=== PATIENT | female | born 1965 | race Caucasian/White ===

== ENCOUNTER → 2023-05-17 15:26 | Outpatient (REF) | payer BC, SELFPAY | LOC: MRI 3T 15:26 | PROVIDERS: ATTENDING PHYSICIAN Internal Medicine Rheumatology; FAMILY PHYSICIAN Family Medicine | DX: R93.2 Abnormal findings on diagnostic imaging of liver and biliary tract (principal) | CPT/HCPCS: 72197; 74183; A9575 ==

== ENCOUNTER → 2023-07-09 10:43 | Outpatient (REF) | payer BC, SELFPAY | LOC: WDC 10:43 | PROVIDERS: ATTENDING PHYSICIAN Obstetrics & Gynecology; FAMILY PHYSICIAN Family Medicine | DX: R92.2 Inconclusive mammogram (principal); Z12.31 Encounter for screening mammogram for malignant neoplasm of breast | CPT/HCPCS: 77063; 77067 ==

== ENCOUNTER → 2023-09-05 15:03 | Outpatient (REF) | payer BC, SELFPAY | LOC: WDC 15:03 | PROVIDERS: ATTENDING PHYSICIAN Obstetrics & Gynecology; FAMILY PHYSICIAN Family Medicine | DX: R92.2 Inconclusive mammogram (principal) | CPT/HCPCS: 76641 ==

== ENCOUNTER → 2023-09-26 09:57 | Outpatient (REF) | payer BC, SELFPAY | LOC: HWRAD 09:57 | PROVIDERS: ATTENDING PHYSICIAN Internal Medicine Rheumatology; FAMILY PHYSICIAN Family Medicine | DX: M81.0 Age-related osteoporosis without current pathological fracture (principal) | CPT/HCPCS: 77080 ==

== ENCOUNTER → 2024-07-12 15:42 | Outpatient (REF) | payer BC, SELFPAY | LOC: WDC 15:42 | PROVIDERS: ATTENDING PHYSICIAN Obstetrics & Gynecology; FAMILY PHYSICIAN Family Medicine | DX: Z12.31 Encounter for screening mammogram for malignant neoplasm of breast (principal) | CPT/HCPCS: 77063; 77067 ==

== ENCOUNTER → 2024-08-01 10:00 | Outpatient (REF) | payer BC, SELFPAY | LOC: WDC 10:00 | PROVIDERS: ATTENDING PHYSICIAN Obstetrics & Gynecology; FAMILY PHYSICIAN Family Medicine | DX: R92.2 Inconclusive mammogram (principal) | CPT/HCPCS: 76641 ==